=== PATIENT | female | born 1945 | race Caucasian/White ===

== ENCOUNTER 2016-09-16 02:01 | Observation (INO) ==
--- NOTE | 2016-09-16 02:17 | Emergency Department Note ---
Disposition Clinical Impression: Lower GI bleed Abdominal pain Qualifiers: Abdominal location: left lower quadrant Qualified Code(s): R10.32 - Left lower quadrant pain Disposition: Admitted As Inpatient Condition: Good Time of Disposition: 07:00 Abdominal Pain HPI - General Chief Complaint: ED Abdominal Pain Stated Complaint: Abdominal Pain Source: patient Mode of arrival: EMS Nursing Notes Reviewed: Yes Vital Signs Reviewed: Yes - History of Present Illness HPI Narrative: Sudden onset of left lower quadrant left flank pain tonight. The patient was weak and called the squad. No prodromal symptoms earlier today. No clear exacerbating or alleviating factors. Patient felt fine until tonight. No vomiting. History of diverticulitis which patient states this feels very similar to. She is otherwise healthy at baseline and lives with family Pt Subjective Complaint: abdominal pain Consistency: constant Location: LLQ Pain Severity: mild, moderate Pain Scale: 3 Quality: cramping, stabbing Radiation: none Improves with: nothing Worsens with: nothing Associated symptoms: Reports: nausea. Denies: vomiting, diarrhea, fever, hematochezia (No prior history of complicated diverticulitis), melena - Related Data Home Medications Medication Instructions Recorded Confirmed Simvastatin [Zocor] 20 mg PO HS 10/26/15 09/16/16 Ezetimibe [Zetia] 10 mg PO DAILY 09/16/16 09/16/16 FLUoxetine HCl [Prozac] 40 mg PO DAILY 09/16/16 09/16/16 Lisinopril/Hydrochlorothiazide 1 each PO DAILY 09/16/16 09/16/16 [Zestoretic 10-12.5 mg Tablet] Allergies Allergy/AdvReac Type Severity Reaction Status Date / Time atorvastatin [From Lipitor] Allergy Cramping Verified 10/26/15 06:58 of the Muscles Constitutional: Denies: fever, chills, weakness, weight change Eyes: Denies: eye pain, eye discharge, vision change ENT ED: Denies: ear pain, throat pain, dental pain, hearing loss, epistaxis, congestion, dysphagia Cardiovascular: Denies: chest pain, palpitations, dyspnea on exertion, edema, syncope Respiratory: Denies: cough, dyspnea, wheezes, hemoptysis, stridor Gastrointestinal: Reports: as per HPI, abdominal pain, nausea Genitourinary: Denies: dysuria, frequency, hematuria, discharge Musculoskeletal: Denies: back pain, neck pain, arthralgia, myalgia Integumentary: Denies: rash, abrasion, lesions Neurological: Denies: headache, weakness, numbness, paresthesias, confusion, abnormal gait, vertigo Psychiatric: Denies: anxiety, depression, suicidal thoughts, homicidal thoughts , auditory hallucinations, visual hallucinations Endocrine: Denies: fatigue Hematological/Lymphatic: Denies: easy bleeding, easy bruising Allergic/Immunologic: Denies: facial swelling, urticaria Abdominal Pain PMH - Past Medical History Medical history: Reports: arthritis, GERD, hyperlipidemia, hypertension, osteoporosis, other Female Surgical History: Reports: hysterectomy DISC JOCKEY history: Reports: no DISC JOCKEY history Psychiatric history: Reports: anxiety, depression - Social History Smoking status: Never smoker Alcohol use: Reports: occasionally Drug use: Reports: none Physical Exam - General Limitations: no limitations General appearance: alert, in no apparent distress - Head Head exam: atraumatic, normocephalic, normal inspection - Eye Eye exam: Present: normal appearance, PERRL, EOMI - Expanded Eye Exam Pupils: Left: reactive - ENT ENT exam: normal exam, normal oropharynx, mucous membranes moist - Expanded ENT Exam External ear exam: Present: normal external inspection Mouth exam: Present: normal external inspection Teeth exam: Present: normal inspection Throat exam: Present: normal inspection - Neck Neck exam: Present: normal inspection, full ROM, trachea midline - Chest Chest inspection: Present: normal inspection, symmetric chest wall rise - Respiratory Respiratory exam: Present: normal lung sounds bilaterally - Cardiovascular Cardiovascular exam: Present: regular rate, normal rhythm, normal heart sounds - Abdominal Exam Abdominal exam: Present: tenderness Abdominal tenderness: Present: LLQ, mild - Extremities Exam Extremities exam: Present: normal inspection, full ROM. Absent: tenderness, pedal edema - Expanded Upper Extremity Exam Shoulder exam: Present: normal inspection, full ROM Arm exam: Present: normal inspection, full ROM Elbow exam: Present: normal inspection, full ROM Forearm/Wrist exam: Present: normal inspection, full ROM Hand exam: Present: normal inspection, full ROM Vascular exam: Normal: capillary refill, radial pulse - Expanded Lower Extremity Exam Hip/Pelvis exam: Present: normal inspection, full ROM Upper leg exam: Present: normal inspection, full ROM Knee exam: Present: normal inspection, full ROM Lower leg exam: Present: normal inspection, full ROM Ankle exam: Present: normal inspection, full ROM Foot/toe exam: Present: normal inspection, full ROM Neurovascular/Tendon exam: Absent: motor deficit, sensory deficit, tendon deficit - Back Exam Back exam: Present: normal inspection, full ROM. Absent: tenderness - Neurological Exam Neurological exam: Present: alert, oriented X3 - Expanded Neurological Exam Patient oriented to: Present: person, place, time Coma Scale Eye Opening: Spontaneous Coma Scale Motor Response: Obeys Commands Coma Scale Verbal Response: Oriented Coma Scale Total: 15 - Psychiatric Psychiatric exam: Present: normal affect, normal mood - Skin Skin exam: Present: warm, dry, intact, normal color Course Course Narrative: Light brown stools w/ some mild amt of bright red blood after BM in the ER; no active bleeding @ time of dispo @ 7 a.m; pain improved; has had regular colonoscopies; CT results noted; stable @ 7 a.m @ tie of dispo ; accepted by the hospitalist after my conversation w/ him at 7 a.m ; Vital Signs Temperature 97.7 F 09/16/16 02:02 Pulse Rate 85 09/16/16 02:02 Respiratory Rate 16 09/16/16 02:02 Blood Pressure 150/75 09/16/16 02:02 O2 Sat by Pulse Oximetry 100 09/16/16 02:02 Temperature 98.2 F 09/16/16 18:49 Pulse Rate 97 09/16/16 18:49 Respiratory Rate 14 09/16/16 18:49 Blood Pressure 142/75 09/16/16 18:49 O2 Sat by Pulse Oximetry 97 09/16/16 18:49 Oxygen Delivery Oxygen Delivery Room Air Abdominal Pain - Lab Data Result diagrams: 09/16/16 02:40 09/16/16 02:40 Lab Results 09/16/16 09/16/16 09/16/16 Range/Units 02:40 02:40 05:20 WBC 6.7 (4.3-11.1) K/mcL RBC 4.01 (3.82-4.97) M/mcL Hgb 11.6 (11.5-15.4) g/dL Hct 36.0 (35.3-44.9) % MCV 89.8 (83.0-100.0) fL MCH 28.9 (28.0-33.3) pg MCHC 32.2 (31.6-35.5) g/dL RDW 13.0 (11.5-14.5) % Plt Count 256 (140-400) K/mcL MPV 9.6 (9.4-12.4) fL Immature Gran % 0.3 (0-4) % Seg Neutrophils % 57.7 % Lymphocytes % 30.6 % Monocytes % 9.6 % Eosinophils % 1.5 % Basophils % 0.3 % Neutrophils # 3.9 (1.6-8.9) K/mcL Lymphocytes # 2.1 (0.6-4.6) K/mcL Monocytes # 0.7 (0.0-1.3) K/mcL Eosinophils # 0.1 (0.0-0.6) K/mcL Basophils # 0.0 (0.0-0.2) K/mcL Sodium 137 (136-145) mEq/L Potassium 3.3 L (3.5-4.5) mEq/L Chloride 98 (98-109) mEq/L Carbon Dioxide 27 (19-29) mEq/L BUN 12 (7-20) mg/dL Creatinine 0.99 (0.57-1.11) mg/dL Est GFR ( Amer) > 60 (> 60) Est GFR (Non-Af Amer) 55 L (> 60) BUN/Creatinine Ratio 12 (6-26) Glucose 135 H (70-99) mg/dL Calculated Osmolality 286 (280-300) Calcium 9.5 (8.6-10.8) mg/dL C-Reactive Protein 3 (Less than 5) mg/L Urine Color Yellow (Yellow) Urine Clarity Clear (Clear) Urine pH 6.0 (5.0-8.0) pH Units Ur Specific [place] 1.010 (1.010-1.025) Urine Protein Negative (Neg-Trace) mg/dL Urine Glucose (UA) Normal (Normal) mg/dL Urine Ketones Negative (Negative) mg/dL Urine Blood Negative (Negative) Urine Nitrite Negative (Negative) Urine Bilirubin Negative (Negative) Urine Urobilinogen Normal (Normal) mg/dL Ur Leukocyte Esterase Negative (Negative)
[2016-09-16 02:49] LABS: Basophils % 0.3 %; Eosinophils # 0.1 K/mcL (0.0-0.6); Eosinophils % 1.5 %; Hemoglobin 11.6 g/dL (11.5-15.4); Immature Granulocytes % 0.3 % (0-4); Lymphocytes # 2.1 K/mcL (0.6-4.6); Lymphocytes % 30.6 %; Mean Corpuscular HGB Conc 32.2 g/dL (31.6-35.5); Mean Corpuscular Hemoglobin 28.9 pg (28.0-33.3); Mean Corpuscular Volume 89.8 fL (83.0-100.0); Mean Platelet Volume 9.6 fL (9.4-12.4); Monocytes # 0.7 K/mcL (0.0-1.3); Monocytes % 9.6 %; Neutrophils # 3.9 K/mcL (1.6-8.9); Platelet Count 256 K/mcL (140-400); Red Blood Count 4.01 M/mcL (3.82-4.97); Segmented Neutrophils % 57.7 %
[2016-09-16 03:00] LABS: BUN/Creatinine Ratio 12 (6-26); Blood Urea Nitrogen 12 mg/dL (7-20); Calcium 9.5 mg/dL (8.6-10.8); Carbon Dioxide 27 mEq/L (19-29); Chloride 98 mEq/L (98-109); Glucose 135 mg/dL (70-99); Osmolality,Calculated 286 (280-300); Potassium 3.3 mEq/L (3.5-4.5); Sodium 137 mEq/L (136-145); eGFR For African Americans > 60 (> 60); eGFR For Non-African Americans 55 (> 60)
[2016-09-16 05:29] LABS: Bilirubin,Urine Negative (Negative); Blood,Urine Negative (Negative); Clarity,Urine Clear (Clear); Color,Urine Yellow (Yellow); Glucose,Urine (UA) Normal (Normal); Ketones,Urine Negative (Negative); Leukocyte Esterase,Urine Negative (Negative); Nitrite,Urine Negative (Negative); Protein,Urine Negative (Neg-Trace); Urobilinogen,Urine Normal (Normal)
[2016-09-16] MEDS ORDERED: *HR* HYDROmorphone (PF) 1 MG/ML SYRINGE IV ONE (07:03)
[2016-09-16] MEDS ORDERED: *HR* HYDROmorphone (PF) 1 MG/ML SYRINGE IVP ONE (07:04)
[2016-09-16] MEDS ORDERED: Ondansetron 4 MG/2 ML VIAL IVP ONE (07:05)
[2016-09-16] MEDS ORDERED: Ondansetron 4 MG/2 ML VIAL IVP PRN (09:25)
[2016-09-16] MEDS ORDERED: Naloxone 0.4 MG/ML INJ IVP PRN (09:25)
[2016-09-16] MEDS ORDERED: *HR* Morphine 2 MG/ML SYRINGE IVP PRN (09:25)
[2016-09-16] MEDS ORDERED: *HR* HYDROcodone/Acet 5/325 mg TABLET PO PRN (09:25)
[2016-09-16 09:46] LABS: C-Reactive Protein 3 mg/L (Less than 5)
[2016-09-16] MEDS: metroNIDAZOLE 500 MG TABLET PO SCH ×3 (10:23→21:20)
--- NOTE | 2016-09-16 11:06 | Internal Med History&Physical ---
Date of Encounter: 09/16/16 Time of Encounter: 08:15 Assessment and Plan (1) Diverticular hemorrhage Current visit: Yes Status: Acute Suspect diverticular bleed, much less likely ischemic bowel Admit for observation Obtain CRP and lactate. Cipro and flagyl po, will hold if CRP and lactate are normal Clear liquid diet. Repeat CBC in the AM Serial abdominal exam Consult GI. No indication for DVT prophyalxsi, low risk Continue medications of chronic morbidities I DISCUSSED MY ASSESSMENT WITH THE PATIENT, SHE VERBALIZED UNDERSTANDING AND IS AGREEABLE TO ADMISSION. (2) Vaso vagal episode Current visit: Yes Status: Acute (3) Acute abdominal pain in left lower quadrant Current visit: No Status: Acute (4) Osteoarthritis Current visit: No Status: Chronic Qualifiers: Osteoarthritis location: unspecified site Osteoarthritis type: unspecified Qualified Code(s): M19.90 - Unspecified osteoarthritis, unspecified site (5) Osteoporosis Current visit: No Status: Chronic Internal Medicine - H&P: HPI Chief complaint: Sudden-onset abdominal pain, hematochezia x 1 day Admitted From: Emergency Dept Plans for Post Hospital Care: Home History of present illness: Ms. Lao is a 70 year old female with medical history significant for diverticulosis with episodes of diverticulitis presents with sudden-onset lower abdominal pain in her left lower quadrant, starting at about 1:00AM this morning. This was followed by a sudden urge to defecate, she moves her bowel, stools was initially hard, then loose then followed by porfirio blood. There was some tenesmus. Stool was non-mucoid. NO FEVER, CHILLS OR RIGORS. She felt soewhat dizzy at that time and had to lay on the floor to prevent a fall. Dizziness resolved within 15 minutes. There was mild nausea, but no vomiting. She was fine all day yesterday, even up to the time of onset of pain this morning. All her previous bouts of diverticlitis have been treated with antiboitics, she has tried to maintain a high fiber diet. She does not recall a prior bout of isolated diverticular bleeding without CT evidence of diverticulitis. No prior history of ischemic colitis. No history of PVD, NO HISTORY OF weight loos or pain with meals. She does not recall a diagnosis of hemorrhoids or hemorrhoidal bleeding. Her last colonoscopy was a couple of years ago, diverticulosis was the primary finding, she has no personal history of GI malignancy, but her brother suffered and of complication of colonic cancer. She is FULL CODE as per discussion, she nominates his daughter, Lisa Barragan as her NOK/POA. ROS: A 10-point ROS was performed, positives and relevant negatives are detailed , system-symptom not mentioned is assumed negative unless otherwise stated. Positives: Abdominal pain, hematochezia, porfirio blood per rectum. Negatives: No PND or orthopnea., no chest pain (no pleurisy), no sore-throat, no hemoptysis, hematemesis, constipation or diarrhea, no urinary or new-onset neurological symptoms. Family history: Father: Hypertension, heart disease, mother: HTN, heart disease , CVA, SISTERS: aLZHEMIER', COLON CANCER, BROTHER: CANCER, needed defibrillator. Vital Signs Temperature 97.7 F 09/16/16 02:02 Pulse Rate 85 09/16/16 02:02 Respiratory Rate 16 09/16/16 02:02 Blood Pressure 150/75 09/16/16 02:02 O2 Sat by Pulse Oximetry 100 09/16/16 02:02 Temperature 97.7 F 09/16/16 02:02 Pulse Rate 85 09/16/16 02:02 Respiratory Rate 16 09/16/16 02:02 Blood Pressure 150/75 09/16/16 02:02 O2 Sat by Pulse Oximetry 100 09/16/16 02:02 Not in distress, not ill or toxic looking. Not pale, anicteric, warm to touch, acyanotic. Moist mucosa. HEENT: No JVD, no cervical lymphadenopathy, Chest : CTAB, diminished generally, especially in the bases. Heart: Tachycardia, RR, HS1/2, no m/r/g. Abdomen: soft, tender in the LLQ, no masses, bowel sound normoactive. 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 Skin: No active skin lesion Extremities: No pedal edema, normal pedal pulses, no calf tenderness Past Med Surg Social Fam HX - Past Medical History Medical history: arthritis, GERD, hyperlipidemia, hypertension, osteoporosis, other Psychiatric history: anxiety, depression - Past Surgical History Surgical History: hysterectomy, other - Social History Smoking Status: Never smoker Smokeless Tobacco Status: No Alcohol use: occasionally Drug use: none - Family History Mother Living Status: Father Living Status: Hx Family Cardiac Disorders: Yes (HTN) Sister Hx Family Cancer: Yes (colon ca) Internal Medicine - H&P: Meds Simvastatin [Zocor] 20 mg PO HS 10/26/15 [History] Ezetimibe [Zetia] 10 mg PO DAILY 09/16/16 [History] FLUoxetine HCl [Prozac] 40 mg PO DAILY 09/16/16 [History] Lisinopril/Hydrochlorothiazide [Zestoretic 10-12.5 mg Tablet] 1 each PO DAILY [History] Allergies atorvastatin [From Lipitor] Allergy (Verified 10/26/15 06:58) Cramping of the Muscles All Systems PM: A 10-system review of systems was performed and is negative for pertinent findings except as documented above in the HPI. - Constitutional Vitals: Temp Pulse Resp BP Pulse Ox 98.1 F 93 15 117/67 94 L 09/16/16 08:17 09/16/16 08:17 09/16/16 08:17 09/16/16 08:17 09/16/16 08:17 Internal Med - H&P Results - Labs CBC & Chem 7: 09/16/16 02:40 09/16/16 02:40 - VTE Reasons for not Prescribing Prophylaxis: Treatment not Indicated - Low risk for VTE
[2016-09-16] MEDS ORDERED: metroNIDAZOLE 500 MG TABLET PO SCH (15:00)
--- NOTE | 2016-09-16 16:17 | Electrocardiograph Report ---
[place] [id number] Test Date: 2016-09-16 Pat Name: Catina Lao Department: 105 Room: 3B Gender: F C.O.D. Biller: : 1945 Requested By: William Baird Order Number: [id number] Reading MD: Brant Harvey Measurements Intervals [place] Rate: 75 P: 39 VA: 130 QRS: 26 QRSD: 92 T: 12 QT: 393 QTc: 422 Interpretive Statements SINUS RHYTHM Electronically Signed On 09-16-2016 16:15:33 EST by Brant Harvey
[2016-09-16] MEDS: 0.9 % Sodium Chloride 1,000 ML IVC SCH (18:03)
[2016-09-17] MEDS: 0.9 % Sodium Chloride 1,000 ML IVC SCH ×3 (02:03→21:55)
[2016-09-17 04:40] LABS: Basophils % 0.1 %; Eosinophils % 0.2 %; Hematocrit 31.6 % (35.3-44.9); Hemoglobin 10.3 g/dL (11.5-15.4); Immature Granulocytes % 0.5 % (0-4); Lymphocytes # 2.3 K/mcL (0.6-4.6); Lymphocytes % 20.8 %; Mean Corpuscular HGB Conc 32.6 g/dL (31.6-35.5); Mean Corpuscular Hemoglobin 29.9 pg (28.0-33.3); Mean Corpuscular Volume 91.9 fL (83.0-100.0); Monocytes % 7.8 %; Platelet Count 204 K/mcL (140-400); Red Blood Count 3.44 M/mcL (3.82-4.97); Red Cell Distribution Width 13.4 % (11.5-14.5); Segmented Neutrophils % 70.6 %
[2016-09-17 04:41] LABS: Monocytes # 0.8 K/mcL (0.0-1.3); Neutrophils # 7.6 K/mcL (1.6-8.9)
[2016-09-17] MEDS: VITAMIN D3 PO SCH (07:56)
[2016-09-17] MEDS: CALCIUM CARBONATE PO SCH (07:56)
[2016-09-17] MEDS: (Ezetimibe [Zetia] 10 MG) PO SCH (07:57)
[2016-09-17] MEDS: metroNIDAZOLE 500 MG TABLET PO SCH ×3 (07:59→21:54)
[2016-09-17] MEDS: FLUoxetine 20 MG CAPSULE PO SCH (08:00)
[2016-09-17] MEDS ORDERED: Lisinopril 20 MG TABLET PO SCH (09:00)
--- NOTE | 2016-09-17 09:00 | Gastroenterology Consult Note ---
<Anne-Marie Verdin - Last Filed: 09/17/16 12:00> Date of Encounter: 09/17/16 Time of Encounter: 11:15 - Assessment and plan (1) Abdominal pain Current Visit: Yes Status: Acute Assessment and plan: Acute onset, not accompanied by fever. Qualifiers: Abdominal location: left lower quadrant Qualified Code(s): R10.32 - Left lower quadrant pain (2) Lower GI bleed Current Visit: Yes Status: Acute Assessment and plan: Hx of diverticulosis, however, no CT imaging evidence of diverticulitis. Suspect ischemic colitis based on sudden onset, dizziness associated with the onset and rectal bleeding. Cscope evaluation OTPT. (3) Anemia Current Visit: No Status: Acute Assessment and plan: Likely d/t lower GI hemorrhage. Monitor H/H for stability. If additional drop in hgb or recurrence of rectal bleeding may require immediately endoscopic evaluation. Qualifiers: Anemia type: other cause Other causes of anemia: other cause, not classified Qualified Code(s): D64.89 - Other specified anemias (4) Diverticular disease of large intestine without perforation or abscess Current Visit: No Status: Chronic Assessment and plan: Fiber supplement daily, avoid seeds, nuts, popcorn, corn, etc. - Time Spent With Patient Total time spent is greater than 50% in coordination of care (as documented) at patient's floor/unit and/or counseling patient: less than 15 minutes GI History of Present Illness - Data of Consult Patient: new to practice Consult date: 09/17/16 Requesting Physician: Cathryn Tobin - Consult Narrative Reason for consult: hematochezia, abd pain History of present illness: Ms. Lao is a 70 year old female with a PMH of OA, htn, hld, diverticulosis and diverticulitis presented to ED with sudden-onset lower abdominal pain in her left lower quadrant, starting at about 1:00AM yesterday morning. This was followed by a sudden urge to defecate, she moves her bowel, stools was initially hard, then loose then followed by porfirio blood. There was some tenesmus. Stool was non-mucoid. She felt dizzy at that time and had to lay on the floor to prevent a fall. Dizziness resolved within 15 minutes. There was mild nausea, but no vomiting. She was fine all day yesterday, even up to the time of onset of pain this morning. All her previous bouts of diverticlitis have been treated with antiboitics, she has tried to maintain a high fiber diet. She does not recall a prior bout of isolated diverticular bleeding without CT evidence of diverticulitis. No prior history of ischemic colitis. No history of PVD, NO HISTORY OF weight loss or pain with meals. She does not recall a diagnosis of hemorrhoids or hemorrhoidal bleeding. Her last colonoscopy was 11/[address] Renee that showed diverticulosis, no polyps. She has no personal history of GI malignancy, but has 1st degree family member with colonic cancer. She is mildly anemic at 10.3, she is currently receiving flagyl and cipro. Patient reports some stool noted in watery am bowel movement today, along with liquid and blood. Less pain, but remains very tender in the LLQ. She was not currently using a daily fiber supplement prior to admission. She is passing some gas today as well. Colonoscopy: 11/2015 - [facility] - diverticulosis, no polyps EGD: 03/2003 - [facility] - gastritis Past Med Surg Social Fam HX - Past Medical History Medical history: arthritis, GERD, hyperlipidemia, hypertension, osteoporosis, other Psychiatric history: anxiety, depression - Past Surgical History Surgical History: hysterectomy, other - Social History Smoking Status: Never smoker Smokeless Tobacco Status: No Alcohol use: occasionally Drug use: none - Family History Mother Living Status: Father Living Status: Hx Family Cardiac Disorders: Yes (HTN) Sister Hx Family Cancer: Yes (colon ca) - Gastrointestinal NSAID use: None noted Anticoagulation Use: None noted Number of BM Per Day: 1 Gastrointestinal: Present: abdominal pain, diarrhea, hematochezia, nausea - Constitutional Constitutional: as per HPI - EENT Eyes: as per HPI Ears: Present: as per HPI Nose, mouth and throat: Present: as per HPI - Cardiovascular Cardiovascular ROS: Present: as per HPI - Respiratory Respiratory IM: Present: as per HPI - Neurological ROS Neurological GI: Present: as per HPI - Hematologic/Lymphatic Hematologic/Lymphatic pediatric: Present: as per HPI - Musculoskeletal Musculoskeletal ROS GI: Present: as per HPI - Integumentary Integumentary GI: Present: as per HPI - Psychiatric ROS Psychiatric GI: Present: as per HPI - Endocrine Endocrine IM: Present: as per HPI - Constitutional Vitals: Temp Pulse Resp BP Pulse Ox 98.2 F 89 20 106/62 93 L 09/17/16 07:33 09/17/16 07:33 09/17/16 07:33 09/17/16 07:33 09/17/16 07:33 General appearance: Present: cooperative, A&O X 3, no acute distress, answers questions appropriately - Head Head exam: Present: atraumatic, normocephalic - Eye Eye exam: Present: normal appearance, sclera anicteric - ENT ENT exam: Present: mucous membranes moist - Neck Neck exam general surgery: Present: normal inspection, trachea midline - Respiratory Respiratory exam: Present: CTAB - Cardiovascular Cardiovascular exam: Present: RRR, +S1, +S2 - GI/Abdominal GI/Abdominal exam: Present: soft, tenderness - Rectal Rectal exam: Present: deferred - Extremities Exam Extremities exam: Present: warm - Neurological Exam Neurological exam: Present: no focal deficits - Psychiatric Psychiatric exam: Present: normal affect, normal mood - Skin Skin exam: Present: dry, intact, normal color, warm Results - Labs CBC & Chem 7: 09/17/16 04:00 09/16/16 02:40 Labs: Last Result Calcium 9.5 mg/dL (8.6-10.8) 09/16/16 02:40 C-Reactive Protein 3 mg/L (Less than 5) 09/16/16 02:40 Entire Visit Hgb 10.3 g/dL (11.5-15.4) L 09/17/16 04:00 Hct 31.6 % (35.3-44.9) L 09/17/16 04:00 Consult Discharge Plan - Plan Referrals: Conrad Gray MD [Primary Care Provider] - 09/23/16 1:15 pm <Efrem Andrews - Last Filed: 09/17/16 16:33> Date of Encounter: 09/17/16 - Time Spent With Patient Total time spent is greater than 50% in coordination of care (as documented) at patient's floor/unit and/or counseling patient: GI History of Present Illness - Data of Consult Requesting Physician: Cathryn Tobin - Consult Narrative History of present illness: Ms. Lao is a 70 year old female - Constitutional Vitals: Temp Pulse Resp BP Pulse Ox 98 F 18 94 114/70 93 L 09/17/16 11:25 02/10/17 11:25 09/17/16 11:25 09/17/16 11:25 09/17/16 07:33 Results - Labs CBC & Chem 7: 09/17/16 04:00 09/16/16 02:40 Labs: Last Result Calcium 9.5 mg/dL (8.6-10.8) 09/16/16 02:40 C-Reactive Protein 3 mg/L (Less than 5) 09/16/16 02:40 Entire Visit Hgb 10.3 g/dL (11.5-15.4) L 09/17/16 04:00 Hct 31.6 % (35.3-44.9) L 09/17/16 04:00 - Attending Attestation I examined this patient and my medical decision-making was reviewed with the TEARER PRESS CLIPPING/PA/Advanced Practice Nurse/Resident Physician. I agree with the documented findings, disposition and treatment plan as described except to the extent set forth below. Pt with ischemic colitis: cont IV fluids, antibiotics and colon as out pt
--- NOTE | 2016-09-17 09:21 | Internal Med Progress Note ---
Date of Encounter: 09/17/16 Time of Encounter: 08:30 - Assessment and plan (1) Acute abdominal pain in left lower quadrant Current Visit: No Status: Acute Assessment and plan: Patient stating her pain has slightly improved but states that her abdomen generally feels very sore today. She is refusing to take pain medication, encouraged to take pain medication. She states she is tolerating clears but states that her abdomen starts to cramp whenever she drinks. She states that she is flatulent. She states that she feels as if she has to have a bowel movement but then all that comes out as "air and blood clots." She remains hemodynamically stable. Hemoglobin 10.3 today. Urinalysis negative. We will continue Cipro and Flagyl. Abdominal CT negative for acute processes. No evidence of diverticulitis. GI is on board, plan is for continued supportive care then possible colonoscopy outpatient. If she becomes hemodynamically stable, we will consider colonoscopy earlier. Possible ischemic colitis given sudden onset. No leukocytosis. Mild tachycardia- stable. BP stable- will trend. Sodium normal. BUN normal. Will check LDH. ITS Impressions Abdomen/Pelvis CT 09/16/16 02:08 IMPRESSION: 1. No evidence for stone disease. 2. Diverticulosis without scan evidence for diverticulitis. D/ / Sergei Purdy MD / Sergei Purdy MD Interpreting Provider: Sergei Purdy MD (2) Lower GI bleed Current Visit: Yes Status: Acute Assessment and plan: She remains hemodynamically stable, will continue to trend. (3) Acute ischemic colitis Current Visit: Yes Status: Suspected (4) Diverticular hemorrhage Current Visit: Yes Status: Suspected (5) Vaso vagal episode Current Visit: Yes Status: Acute Assessment and plan: Likely secondary to severe abdominal pain secondary to possible ischemic colitis. She is alert and oriented 3 and denies lightheadedness or dizziness. We will continue to monitor (6) Anemia Current Visit: No Status: Acute Assessment and plan: Acute blood loss anemia, mild and stable (7) Hematochezia Current Visit: No Status: Acute (8) Hyperglycemia Current Visit: No Status: Acute Assessment and plan: Likely secondary to stress, low suspicion for diabetes. A1c checked last year at 5.9%, will recheck with a.m. labs (9) Hypokalemia Current Visit: No Status: Acute Assessment and plan: mild, will replete and check magnesium. (10) Diverticular disease of large intestine without perforation or abscess Current Visit: No Status: Chronic Assessment and plan: GI on board, fiber supplements (11) HTN (hypertension) Current Visit: Yes Status: Chronic Assessment and plan: Controlled. At home, patient is on lisinopril 10 mg, HCTZ 12.5 mg; continued. We will continue to trend and adjust medications as indicated. - Subjective Interval history: Patient seen and examined. On examination, patient resting in bed. Patient stating she is feeling better but still states that her abdomen is sore. She states she is tolerating clears with states that her abdomen immediately hurts after ingesting liquids. Patient stating she is flatulence and when she has a bowel movement she states "all that comes out is air and blood clots." She states her pain is currently tolerable and states she has not asked for pain medication since yesterday. - Constitutional Vitals: Temp Pulse Resp BP Pulse Ox 98.2 F 89 20 106/62 93 L 09/17/16 07:33 09/17/16 07:33 09/17/16 07:33 09/17/16 07:33 09/17/16 07:33 General appearance: Present: A&O X 3, pleasant, no acute distress, answers questions appropriately - Head Head exam: Present: atraumatic, normocephalic - Eye Eye exam: Present: PERRL, conjuntiva pink, sclera anicteric Pupils: Present: PERRL - Neck Neck exam general surgery: Present: supple, trachea midline. Absent: lymphadenopathy - Respiratory Respiratory exam: Present: CTAB. Absent: accessory muscle use, rales, respiratory distress, rhonchi, wheezes - Cardiovascular Cardiovascular exam: Present: RRR, +S1, +S2. Absent: diastolic murmur, gallop, rubs, systolic murmur - GI/Abdominal GI/Abdominal exam: Present: distended, hyperactive bowel sounds, soft, tenderness (diffuse), no peritoneal signs - Extremities Exam Extremities exam: Present: warm, radial pulses palpable and symetrical. Absent : calf tenderness, cyanotic, pedal edema - Neurological Exam Neurological exam: Present: alert, CN II-XII intact, oriented X3, no focal deficits, strengths equal and symetr throughout. Absent: pronater drift, facial droop, speech deficit - Skin Skin exam: Present: dry, intact, pallor, warm Internal Medicine: Result - Labs CBC & Chem 7: 09/17/16 04:00 09/16/16 02:40 Labs: Short CBC 09/17/16 Range/Units 04:00 WBC 10.8 D (4.3-11.1) K/mcL Hgb 10.3 L (11.5-15.4) g/dL Hct 31.6 L (35.3-44.9) % Plt Count 204 (140-400) K/mcL Neutrophils # 7.6 (1.6-8.9) K/mcL - VTE Reasons for not Prescribing Prophylaxis: Treatment not Indicated - Low risk for VTE Consult Discharge Plan - Plan Referrals: Conrad Gray MD [Primary Care Provider] - 09/23/16 1:15 pm
[2016-09-17] MEDS ORDERED: Potassium Chloride 40 MEQ, Lidocaine 1% 2 ML in D5% in Water 500 ML IVPB ONE (09:23)
[2016-09-17] MEDS ORDERED: Ondansetron 4 MG/2 ML VIAL IVP PRN (09:32)
[2016-09-18 04:55] LABS: Basophils % 0.2 %; Eosinophils # 0.1 K/mcL (0.0-0.6); Eosinophils % 1.2 %; Hematocrit 28.2 % (35.3-44.9); Hemoglobin 9.1 g/dL (11.5-15.4); Immature Granulocytes % 0.2 % (0-4); Lymphocytes % 23.5 %; Mean Corpuscular HGB Conc 32.3 g/dL (31.6-35.5); Mean Corpuscular Volume 93.1 fL (83.0-100.0); Mean Platelet Volume 10.3 fL (9.4-12.4); Monocytes # 0.6 K/mcL (0.0-1.3); Monocytes % 6.9 %; Neutrophils # 5.7 K/mcL (1.6-8.9); Platelet Count 172 K/mcL (140-400); Red Blood Count 3.03 M/mcL (3.82-4.97); Red Cell Distribution Width 13.3 % (11.5-14.5)
[2016-09-18 05:14] LABS: Hemoglobin A1C 5.6 %
[2016-09-18 05:20] LABS: BUN/Creatinine Ratio 4 (6-26); Calcium 8.2 mg/dL (8.6-10.8); Carbon Dioxide 26 mEq/L (19-29); Chloride 107 mEq/L (98-109); Glucose 104 mg/dL (70-99); Lactate Dehydrogenase 138 Units/L (159-327); Magnesium 1.3 mg/dL (1.6-2.6); Osmolality,Calculated 287 (280-300); Potassium 3.3 mEq/L (3.5-4.5); Sodium 140 mEq/L (136-145); eGFR For African Americans > 60 (> 60); eGFR For Non-African Americans > 60 (> 60)
[2016-09-18 05:23] LABS: Blood Urea Nitrogen 3 mg/dL (7-20)
[2016-09-18] MEDS: 0.9 % Sodium Chloride 1,000 ML IVC SCH (06:19)
[2016-09-18] MEDS ORDERED: Potassium Chloride 40 MEQ, Lidocaine 1% 2 ML in D5% in Water 500 ML IVPB ONE (08:14)
[2016-09-18] MEDS ORDERED: Magnesium Sulfate 1 GM in D5% in Water 100 ML IVPB ONE (08:14)
[2016-09-18] MEDS: FLUoxetine 20 MG CAPSULE PO SCH (09:09)
[2016-09-18] MEDS: metroNIDAZOLE 500 MG TABLET PO SCH ×3 (09:09→20:30)
[2016-09-18] MEDS: VITAMIN D3 PO SCH (09:10)
[2016-09-18] MEDS: (Ezetimibe [Zetia] 10 MG) PO SCH (09:10)
[2016-09-18] MEDS: CALCIUM CARBONATE PO SCH (09:10)
--- NOTE | 2016-09-18 16:42 | Internal Med Progress Note ---
Date of Encounter: 09/18/16 Time of Encounter: 16:40 - Assessment and plan (1) Abdominal pain Current Visit: Yes Status: Acute Assessment and plan: improved, tolerating clear liquids will advance diet to soft today. Qualifiers: Abdominal location: left lower quadrant Qualified Code(s): R10.32 - Left lower quadrant pain (2) Lower GI bleed Current Visit: Yes Status: Acute Assessment and plan: She remains hemodynamically stable, will continue to trend. h/h today is 9.1 from 10.3 yesterday. denies any blood in the stool today. Hx of diverticulosis, however, no CT imaging evidence of diverticulitis. Suspect ischemic colitis based on sudden onset, dizziness associated with the onset and rectal bleeding. if stable overnight, will dc tomm with plan to do OP c- scope (3) HTN (hypertension) Current Visit: Yes Status: Chronic Assessment and plan: Controlled. At home, patient is on lisinopril 10 mg, HCTZ 12.5 mg; continued. We will continue to trend and adjust medications as indicated. Qualifiers: Hypertension type: essential hypertension Qualified Code(s): I10 - Essential (primary) hypertension (4) Anemia Current Visit: No Status: Acute Assessment and plan: Acute blood loss anemia, mild and stable Qualifiers: Anemia type: other cause Other causes of anemia: other cause, not classified Qualified Code(s): D64.89 - Other specified anemias (5) Diverticular disease of large intestine without perforation or abscess Current Visit: No Status: Chronic Assessment and plan: GI on board, fiber supplements - Time Spent With Patient 25 - 35 minutes - Subjective Interval history: seen today at the bedside. denies abdominal pain, shaun or blood in stool tolerating clear liquid diet, no n/v. - Constitutional Vitals: Temp Pulse Resp BP Pulse Ox 98.1 F 88 16 100/54 95 09/18/16 14:43 09/18/16 14:43 09/18/16 14:43 09/18/16 14:43 09/18/16 14:43 General appearance: Present: A&O X 3, pleasant, no acute distress, answers questions appropriately Exam: - Head Head exam: Present: atraumatic, normocephalic - Eye Eye exam: Present: normal appearance, sclera anicteric - ENT ENT exam: Present: mucous membranes moist - Neck Neck exam general surgery: Present: normal inspection, trachea midline - Respiratory Respiratory exam: Present: CTAB - Cardiovascular Cardiovascular exam: Present: RRR, +S1, +S2 - GI/Abdominal GI/Abdominal exam: Present: soft, tenderness - Rectal Rectal exam: Present: deferred - Extremities Exam Extremities exam: Present: warm - Neurological Exam Neurological exam: Present: no focal deficits - Psychiatric Psychiatric exam: Present: normal affect, normal mood - Skin Skin exam: Present: dry, intact, normal color, warm Internal Medicine: Result - Labs CBC & Chem 7: 09/18/16 04:05 09/18/16 04:05 Labs: Short CBC 09/18/16 Range/Units 04:05 WBC 8.4 (4.3-11.1) K/mcL Hgb 9.1 L (11.5-15.4) g/dL Hct 28.2 L (35.3-44.9) % Plt Count 172 (140-400) K/mcL Neutrophils # 5.7 (1.6-8.9) K/mcL BMP 09/18/16 04:05 Sodium 140 Potassium 3.3 L Chloride 107 Carbon Dioxide 26 BUN 3 L Creatinine 0.69 Glucose 104 H Calcium 8.2 L - VTE Reasons for not Prescribing Prophylaxis: Treatment not Indicated - Low risk for VTE Consult Discharge Plan - Plan Referrals: Conrad Gray MD [Primary Care Provider] - 09/23/16 1:15 pm
[2016-09-19] MEDS: 0.9 % Sodium Chloride 1,000 ML IVC SCH (00:16)
[2016-09-19] MEDS: metroNIDAZOLE 500 MG TABLET PO SCH (08:10)
[2016-09-19] MEDS: FLUoxetine 20 MG CAPSULE PO SCH (08:10)
[2016-09-19] MEDS: VITAMIN D3 PO SCH (08:12)
[2016-09-19] MEDS: CALCIUM CARBONATE PO SCH (08:12)
[2016-09-19] MEDS: (Ezetimibe [Zetia] 10 MG) PO SCH (08:12)
[2016-09-19 11:49] VITALS: BP 128/81
[2016-09-19 11:49] LABS: Basophils % 0.2 %; Eosinophils # 0.1 K/mcL (0.0-0.6); Eosinophils % 1.6 %; Hematocrit 27.7 % (35.3-44.9); Immature Granulocytes % 0.2 % (0-4); Lymphocytes # 1.1 K/mcL (0.6-4.6); Mean Corpuscular HGB Conc 32.5 g/dL (31.6-35.5); Mean Corpuscular Hemoglobin 29.8 pg (28.0-33.3); Mean Corpuscular Volume 91.7 fL (83.0-100.0); Mean Platelet Volume 10.1 fL (9.4-12.4); Monocytes # 0.5 K/mcL (0.0-1.3); Monocytes % 10.9 %; Neutrophils # 2.6 K/mcL (1.6-8.9); Platelet Count 169 K/mcL (140-400); Red Blood Count 3.02 M/mcL (3.82-4.97); Red Cell Distribution Width 13.2 % (11.5-14.5); Segmented Neutrophils % 61.1 %
[2016-09-19 12:00] LABS: BUN/Creatinine Ratio 4 (6-26); Calcium 8.3 mg/dL (8.6-10.8); Carbon Dioxide 25 mEq/L (19-29); Chloride 108 mEq/L (98-109); Glucose 99 mg/dL (70-99); Osmolality,Calculated 285 (280-300); Potassium 3.8 mEq/L (3.5-4.5); Sodium 139 mEq/L (136-145); eGFR For African Americans > 60 (> 60); eGFR For Non-African Americans > 60 (> 60)
[2016-09-19 12:01] LABS: Blood Urea Nitrogen 3 mg/dL (7-20)
--- NOTE | 2016-09-19 12:45 | Discharge Summary ---
Date of Encounter: 09/19/16 Time of Encounter: 12:42 - Discharge Diagnosis (1) Abdominal pain Priority: Primary Status: Acute Qualifiers: Abdominal location: left lower quadrant Qualified Code(s): R10.32 - Left lower quadrant pain (2) Lower GI bleed Priority: Primary Status: Acute (3) HTN (hypertension) Priority: Secondary Status: Chronic Qualifiers: Hypertension type: essential hypertension Qualified Code(s): I10 - Essential (primary) hypertension (4) Anemia Priority: Primary Status: Acute Qualifiers: Anemia type: other cause Other causes of anemia: other cause, not classified Qualified Code(s): D64.89 - Other specified anemias (5) Diverticular disease of large intestine without perforation or abscess Priority: Secondary Status: Chronic - Discharge Medications Prescriptions: HYDROcodone/Acet 5/325 mg [[place] 5-325 mg] 1 tab PO Q6HR #20 tablet Home Medications: Simvastatin [Zocor] 20 mg PO HS 10/26/15 [History] Ezetimibe [Zetia] 10 mg PO DAILY 09/16/16 [History] FLUoxetine HCl [Prozac] 40 mg PO DAILY 09/16/16 [History] Lisinopril/Hydrochlorothiazide [Zestoretic 10-12.5 mg Tablet] 1 each PO DAILY [History] HYDROcodone/Acet 5/325 mg [[place] 5-325 mg] 1 tab PO Q6HR #20 tablet 09/19/16 [Rx ] Allergies/Adverse Reactions: Allergies atorvastatin [From Lipitor] Allergy (Verified 10/26/15 06:58) Cramping of the Muscles Date of admission: 09/16/16 07:43 Primary care physician: Conrad Gray MD Consults: 09/16/16 09:24 Consult to Gastroenterology [CONS] Routine Consulting Provider: Gastroenterology Janessa Reason for Consult: Diverticular bleed. Call Completed: No Discharging clinician: Luis E Sun Anticipated date of discharge: 09/19/16 - Patient Status Disposition: Home, Self-Care Condition: Fair Functional capacity at discharge: independent ambulation Overall status at discharge: patient is back to baseline - Discharge Instructions Instructions: Syncope (DC), Acute Abdominal Pain (DC) Follow Up With: Conrad Gray MD [Primary Care Provider] - 02/16/17 1:15 pm Efrem Andrews MD [Partnered Physician] - (follow up for possible ischemic colitis , being dc today, f/u in 10 days. Appointment web requested. Office to contact patient at home to schedule appointment. ) - Diet and Activity Activity: resume usual activities as tolerated Diet: advance to your usual diet Interval History: Ms. Lao is a 70 year old female with a PMH of OA, htn, hld, diverticulosis and diverticulitis presented to ED with sudden-onset lower abdominal pain in her left lower quadrant, starting at about 1:00AM yesterday morning. This was followed by a sudden urge to defecate, she moves her bowel, stools was initially hard, then loose then followed by porfirio blood. There was some tenesmus. Stool was non-mucoid. She felt dizzy at that time and had to lay on the floor to prevent a fall. Dizziness resolved within 15 minutes. There was mild nausea, but no vomiting. No prior history of ischemic colitis. No history of PVD, NO HISTORY OF weight loss or pain with meals. She does not recall a diagnosis of hemorrhoids or hemorrhoidal bleeding. Her last colonoscopy was 11/[address] Renee that showed diverticulosis, no polyps. She has no personal history of GI malignancy, but has 1st degree family member with colonic cancer. She was admitted for this acute GI bleed. GI was consulted. She has Hx of diverticulosis, however, no CT imaging evidence of diverticulitis. Suspect ischemic colitis based on sudden onset, dizziness associated with the onset and rectal bleeding. GI recommended Cscope evaluation OTPT. Her CBC remained stable while inpatient and she did not have any recurrence of GI bleed while in the hospital. We will give patient appointment in 1 week to see GI in the clinic. She is being discharged in stable condition today. Hospital course: Ms. Lao is a 70 year old female Time spent discussing smoking cessation with patient: more than 10 minutes - Time Spent with Patient Total time spent providing and/or coordinating discharge services: Greater than 30 minutes - Constitutional Vitals: Temp Pulse Resp BP Pulse Ox 97.6 F 86 15 128/81 99 09/19/16 11:48 09/19/16 11:48 09/19/16 11:48 09/19/16 11:48 09/19/16 11:48 General appearance: Present: A&O X 3, pleasant, no acute distress, answers questions appropriately Exam: - Head Head exam: Present: atraumatic, normocephalic - Eye Eye exam: Present: normal appearance, sclera anicteric - ENT ENT exam: Present: mucous membranes moist - Neck Neck exam general surgery: Present: normal inspection, trachea midline - Respiratory Respiratory exam: Present: CTAB - Cardiovascular Cardiovascular exam: Present: RRR, +S1, +S2 - GI/Abdominal GI/Abdominal exam: Present: soft, tenderness - Rectal Rectal exam: Present: deferred - Extremities Exam Extremities exam: Present: warm - Neurological Exam Neurological exam: Present: no focal deficits - Psychiatric Psychiatric exam: Present: normal affect, normal mood - Skin Skin exam: Present: dry, intact, normal color, warm - VTE Reasons for not Prescribing Prophylaxis: Treatment not Indicated - Low risk for VTE
== END 2016-09-19 14:09 | disposition home or self-care (01) ==
LOC: EMEROO 02:01 → 3BNU 02:01
PROVIDERS: ADMIT Internal Medicine; ATTEND Nurse Practitioner Family